=== PATIENT | male | born 1935 | race African-American/Black ===

== ENCOUNTER 2019-08-12 05:46 | Emergency (ER) | payer OTHER ==
[~2019-08-12] VITALS: Ht 182.9 cm; Wt 90.9 kg
[~2019-08-12 05:46] MED LIST: ALBUTEROL SULF8.5 GM INH; COUMADIN1 MG PO; FLOMAX0.4 MG PO; LEVAQUIN750 MG PO; MUCINEX600 MG PO; PACERONE100 MG PO
[2019-08-12 05:51] VITALS: Ht 182.9 cm; Wt 90.9 kg
[2019-08-12 06:49] LABS: BASOPHILS 0 % (0-2); EOSINOPHILS 0 % (0-7); HEMATOCRIT 34.4 % (42.0-54.0); HEMOGLOBIN 12.3 g/dL (13.5-17.5); IMMATURE GRANULOCYTES 0.5 % (0-5); LYMPHOCYTES 5.8 % (15-50); MCH 27.5 pg (26.0-34.0); MCHC 35.8 g/dL (31.0-37.0); MEAN PLATELET VOLUME 9.4 fL (7.4-10.4); MONOCYTES 6.9 % (2-11); NEUTROPHILS 86.8 % (40-80); PLATELET COUNT 234 10x3/uL (130-400); RBC 4.47 10x6/uL (4.20-6.10); RDW 14.4 % (11.5-14.5); WBC 6.1 10x3/uL (4.8-10.8)
[2019-08-12 07:07] LABS: CALC OSMOLALITY 253 mosm/kg (275-300); CALCIUM 7.7 mg/dL (8.5-10.1); CARBON DIOXIDE 32.3 mmol/L (21.0-32.0); CHLORIDE - SERUM 88 mmol/L (98-107); CREATININE - SERUM 0.8 mg/dL (0.6-1.3); GLUCOSE 157 mg/dL (74-106); POTASSIUM - SERUM 3.7 mmol/L (3.5-5.1); SODIUM 124 mmol/L (136-145); UREA NITROGEN 14 mg/dL (7-18); eGFR NON AFRICAN AMERICAN > 90 mL/min (90-120)
[2019-08-12 07:11] LABS: APTT 34.9 SECONDS (22.8-39.4); INR 2.1 (0.85-1.17); PROTIME 23.2 SECONDS (11.6-15.0)
[2019-08-12 07:12] LABS: D-DIMER-QUANTITATIVE 0.39 ug/mLFEU (0.20-0.54)
[2019-08-12 07:33] LABS: ALBUMIN 2.5 g/dL (3.4-5.0); ALKALINE PHOSPHATASE 93 U/L (30-120); ALT (SGPT) 133 U/L (10-68); CREATINE KINASE 242 UL (21-232); PRO BNP 1045 pg/mL (0-450); PROTEIN - SERUM 5.8 g/dL (6.4-8.2); TROPONIN-I < 0.017 ng/mL (0.000-0.060)
[2019-08-12 07:40] LABS: LIPASE 43 U/L (73-393); MAGNESIUM - SERUM 1.7 mg/dL (1.8-2.4)
[2019-08-12 07:41] LABS: CKMB 6.7 U/L (0.0-3.6)
[2019-08-12 08:14] LABS: BILIRUBIN NEGATIVE (NEGATIVE); GLUCOSE NEGATIVE (NEGATIVE); KETONE NEGATIVE (NEGATIVE); NITRITE NEGATIVE (NEGATIVE); SPECIFIC GRAVITY 1.025 (1.005-1.020); UROBILINOGEN NORMAL (NORMAL)
[2019-08-12 16:30] VITALS: BP 114/71
== END 2019-08-12 16:30 | disposition other institution (70) ==
LOC: D.ER 05:46
PROVIDERS: Family Medicine
DX: R06.00 Dyspnea, unspecified (principal); D64.9 Anemia, unspecified; I50.9 Heart failure, unspecified; J44.9 Chronic obstructive pulmonary disease, unspecified; E87.1 Hypo-osmolality and hyponatremia